=== PATIENT | male | born 2005 | race Caucasian/White ===

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

== ENCOUNTER 2024-01-26 05:59 | Day surgery (SDC) | payer OTHER, SELFPAY ==
[2024-01-26] VITALS (9 sets, daily range): BP systolic 105–146; BP diastolic 49–78; PULSE 48–104; RESP 16–24; TEMP 36.1–36.4; O2SAT 95–100; BMI 26.4
[2024-01-26] MEDS: LACTATED RINGERS 1000ML 1,000 ML 25 ML IV (06:32)
--- NOTE | 2024-01-26 07:10 | P.PNANES_ITS ---
[facility] Disclaimer: The information contained in this section may have been updated after the patient was seen, as this information can be updated by other users. Surgical History History of eye surgery Family History Other Cancer Diabetes Heart attack Hyperlipidemia Hypertension Stroke Substance abuse Social History (Updated 01/26/24 @ 06:19 by Lissette Christensen RN) Smoking Status: Never smoker alcohol intake: never substance use type: denies use current occupational status: student Travel in the last 8 weeks: None household members: family [facility] Anesthesia Checklist Patient Identification Patient Identification: Arm Band, Family and Verbal (Name & ) Structural Data Admitted From: Home Planned Operative Procedure/s: RIGHT Knee Arthroscopic-assisted ACL Repair Consent for Planned Operative Procedure(s) Verified: Yes Verified Documents: Surgical Consent and History and Physical NPO Status Verified Time NPO: 21:00 Chart Verification Results Verified: None (None since 2018) Additional verifications Patient : No Anesthesia Reactions: No Hx Blood Transfusions: No Blood Transfusion Reaction: No Cardiovascular Assessment Heart Sounds: S1 & S2 Pulse Rhythm: Irregular Peripheral Edema: No Airway Assessment Mallampati Score:: Class II C-Spine Mobility Assessed: Yes (FROM) TMJ Mobility Assessed: Yes Dentition: Good Dentition (Nothing loose per pt.) Neurological Assessment Level of Consciousness: Awake, Appropriate and Follows Commands Hx Seizures: No Numbness or tingling in extremities: No Anesthesia Plan Anesthesia Risk discussed: Yes Anesthesia Plan: Verified ASA Class: I Anesthesia Type: General w/block (Adductor canal)
[2024-01-26] MEDS: CEFAZOLIN SODIUM 2 GM in 0.9 % SODIUM CHLORIDE 100 ML IV (07:50)
--- NOTE | 2024-01-26 11:13 | EXP.OP.NOTE ---
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 Right knee arthroscopic assisted anterior cruciate ligament reconstruction with quadriceps autograft 2, right knee arthroscopy partial medial meniscectomy Surgeon:: Andres Fountain DO Respite Coordinator(s):: jose d forbes MAGNETIC RESONANCE TECHNOLOGIST:: Dotty Avalos Anesthesia: GETA and regional Estimated blood loss (mL): 25 Clinical Note:: 18-year-old male who suffered initial knee injury in 2019 while playing sports at which time resulted in an ACL tear and possible meniscus tear he did not have workup done at that time however recently has had some mechanical symptoms catching locking giving out MRI scan showed complex tear of the medial meniscus and chronic ACL tear. He had full good range of motion and clinically was doing quite well but would like to have the knee reconstructed in regards to the ACL and address the meniscal tear. Operative findings:: Chronic full-thickness tear ACL Large complex tear medial meniscus chronic in nature bucket-handle type nonrepairable Operative note:: Patient is identified preoperatively. Right knee marked with yes my initials. Underwent a block with anesthesia. Taken the operating room. Placed upon operating bed. General anesthesia was ministered airway secured. Right lower extremity was then prepped and draped in normal sterile fashion within the knee anand. Once prepped and draped final operative timeout performed to identify proper patient procedure and extremity. Everyone involved the case agreed. No counter indications to beginning. Did receive preoperative antibiotics. Marking pen was used to carson the bony landmarks of the knee and superior pole the patella and planned portal sites. Esmarch was used to exsanguinate extremity medic tourniquet was inflated to 300 mmHg. Standard anterior lateral portal was made and the blunt with trocar was placed in patellofemoral joint exchange with a camera. Within the patellofemoral joint I swept directly into the medial joint line where the anterior medial portal was made with the help of the 18-gauge spinal needle. Within the medial portal swept into the medial joint line there was a large complex tear with a bucket-handle type tear of the medial meniscus. This was a chronic appearing tear and was complex in nature significant effort was made to flip the meniscus back into its proper place in hopes of salvaging this meniscus however given the chronic nature of the tear and the scarring in this area I was unable to flip the meniscus into a reducible situation that would allow it to heal. It is likely that this meniscus tear happened at the initial injury in 2019. Therefore partial medial meniscectomy was performed stable rim to remove the large torn portion of the meniscus. Tensions then brought to the intercondylar notch the ACL was missing and there was some scarring on the tibial side. At that time the camera was removed and attention was brought to the quadriceps. Longitudinal incision was made just above the superior pole of the patella. The fat in this area was removed to get down to tendon. Quadriceps tendon was visualized and the camera was then placed to show a depth of 7 cm and this was marked on the skin with a camera. Dissection was taken down the circumferential area of the quad pro harvester was utilized and marked with a marking pen. Attention was then brought down to the edge it was freed from the patella. A stay stitch was then placed in the distal aspect and placed in the quad pro harvester. Harvester was then used to cut the quad tendon to a distance of 7 cm. The cutting device was then used to harvest the quadriceps tendon. This was placed on the back table where preparation was performed with attachment of the tight rope mechanisms on both the femoral and tibial ends. Graft was placed through the graft sizers sized to a size 9 on the femoral side 8 on the tibia side. As a graft being prepared attention was brought to drilling of the tunnels the anterior medial portal was made with a 18-gauge spinal needle for proper visualization and then over top guide was placed with a guidepin and overdrilled and proper trajectory. Once overdrilled the passing stitch was then placed and tagged. Attention was then brought to the tibial tunnel. The tibial guide was utilized and the flip cutter guidewire was then placed and flipped to a size 8 and the tibial socket was drilled. Then another passing suture was placed. Attention is then brought to the graft where the free ends of the femoral side graft were placed through where the button was brought on the outside of the femur and allowed to flip and then using the white sutures the femoral portion of the graft was walked into the femoral tunnel. Within the femoral tunnel the graft was walked up into snug into the tunnel. Probe was used then to flip the tibial portion of the graft down and the passing suture through the tibia was then placed to pull the tight rope mechanism out through the tibial drill hole ABS button was then attached and placed on the tibia side with the knee in extension. This gave good fixation of the ACL graft was stable after repair. Cameras removed the joint was drained. Skin closed with deep with Vicryl stitch and skin with nylon stitch sterile dressing placed patient taken recovery in stable condition. Condition: stable Disposition: PACU Complications:: None apparent
--- NOTE | 2024-01-26 11:39 | P.PNANES_ITS ---
[facility] Anesthesia Record Part I Anesthesia Record I Intake, IV Amount: 1,500 Hydration: Adequate Estimated blood loss (mL): 50 Urine output (mL): 0 Blood Products used (#): none Blood Pressure: 146/53 SaO2: 95 Pulse Rate: 104 Airway Patency: Patent Respiratory Rate: 24 Temperature: 96.9 F Patient is:: Awake (Talking) and Stable Stable to PACU at:: 11:30
--- NOTE | 2024-01-26 12:02 | SUR.PHASEI ---
1155- detailed report given to hussein garcia in post op. Pt left in stable condition. Rehab notified to fit pt for TROM brace in post op.
--- NOTE | 2024-01-27 12:01 | EXP.ANES.II ---
[facility] Anesthesia Record Part II Anesthesia Record Part II Discharge Time: 11:55 Destination: Surgical Day Care (OP Surgery) PACU nurse assessment reviewed?: Yes Patient Condition:: Good Anesthesia Complications:: None Swallowing reflex intact?: Yes Airway Patency: Patent Cyanosis?: No Blood Pressure: 105/52 SaO2: 98 Respiratory Rate: 24 Pulse Rate: 81 Temperature: 97.2 F Mental Status: Alert & Oriented Pain level:: 0 Nausea and/or vomitting:: None Intake, IV Amount: 1,500 Hydration: Adequate
[2024-01-27 12:02] VITALS: BP 105/52; PULSE 81; RESP 24; TEMP 36.2; O2SAT 98
== END 2024-01-26 12:45 | disposition home or self-care (01) ==
PROVIDERS: PCP Internal Medicine; Visit Provider Orthopaedic Surgery
PROC: (CPT 29870; principal; 2024-01-26 07:30)
DX: S83.231A Complex tear of medial meniscus, current injury, right knee, initial encounter (principal); S83.511A Sprain of anterior cruciate ligament of right knee, initial encounter
CPT/HCPCS: 29888; 29881; 96375; C1713; C9290; J0690; J2405; J7120

== ENCOUNTER 2024-02-21 16:52 | Emergency (ER) | payer OTHER, SELFPAY ==
[2024-02-21 17:00] VITALS: BP 131/64; PULSE 100; RESP 18; TEMP 38.2; O2SAT 96; BMI 26.4
[2024-02-21 17:13] LABS: UTC Strep Screen (Rapid) Negative (Negative)
--- NOTE | 2024-02-21 17:13 | EXP.UTC ---
Discharge Plan Disposition Patient Disposition: Home, Self-Care Condition: Good Prescriptions Prescriptions: New prednisone 20 mg tablet 20 mg PO DAILY 2 Days Qty: 2 0RF amoxicillin 875 mg tablet 875 mg PO Q12H Qty: 20 0RF nrkakecqbcjebrl-cywhnufoo-QS [Bromfed DM] 2-30-10 mg/5 mL Syrup 5 ml PO Q6H PRN (Reason: Cough) Qty: 240 0RF Referrals Follow up/Referrals: Ruben Duran DO [Primary Care Provider] - See instructions Activity Restrictions/Add. Instructions Additional Instructions/Restrictions: Drink plenty of fluids. Take tylenol or ibuprofen for pain or fever. Take the medications as directed. Follow up with your regular doctor. GO TO THE ER FOR ANY WORSENING SYMPTOMS Clinical Impressions Clinical Impression: Pharyngitis Instructions Patient Instructions: DI for Pharyngitis/Tonsillopharyngitis -- Adult, Prednisone, Amoxicillin Discharge ED Provider: Gonzalez Barajas [facility] General Stated complaint: sore throat, fever Mode of Arrival: Ambulatory Source of Information: Patient Limitations: No Limitations Time Seen by Provider: 02/21/24 17:13 Description of Symptoms (Recalled from Triage Doc. by RN): Pt's symptoms are sore throat, and body aches. HEENT Symptoms (Recalled from RN notes): Yes Resp Symptoms (Recalled from RN notes): No Skin Symptoms (Recalled from RN notes): No MS Symptoms (Recalled from RN notes): No Functional Status (Recalled from RN notes): n/a Related Data Previous Rx's Medication Instructions Recorded amoxicillin 875 mg tablet 875 mg PO Q12H #20 tabs 02/21/24 fxqaqyncsnfxzvq-bzotalgytadftmu-GB 5 ml PO Q6H PRN Cough #240 mL 02/21/24 2 mg-30 mg-10 mg/5 mL oral syrup (Bromfed DM) prednisone 20 mg tablet 20 mg PO DAILY 2 days #2 tabs 02/21/24 Allergies Allergy/AdvReac Type Severity Reaction Status Date / Time No Known Allergies Allergy Verified 02/21/24 17:06 Worker's Comp Is this a Worker's Comp case?: No [facility] Disclaimer: The information contained in this section may have been updated after the patient was seen, as this information can be updated by other users. Surgical History History of eye surgery Family History Other Cancer Diabetes Heart attack Hyperlipidemia Hypertension Stroke Substance abuse Social History Smoking Status: Never smoker alcohol intake: never substance use type: denies use current occupational status: student Travel in the last 8 weeks: None household members: family ROS Obtained: Yes All systems reviewed & no additional complaints except as documented Constitutional Constitutional: Reports chills and Reports fever(s) Eyes Eyes: Denies eye discharge ENT Ears, Nose, Mouth, and Throat: Reports as per HPI Cardiovascular Cardiovascular: Denies chest pain Respiratory Respiratory: Denies chest congestion and Reports cough Gastrointestinal Gastrointestingal: Reports nausea; Denies abdominal pain, constipation, cramping, diarrhea or vomiting Musculoskeletal Musculoskeletal: Denies arthralgias Integumentary/Breasts Skin/Breast: Denies rash Neurologic Neurologic: Denies paresthesias Physical Exam General General appearance: alert and in no apparent distress Head Head exam: atraumatic, normocephalic and normal inspection Eye Eye exam: Present normal appearance, PERRL and EOMI ENT ENT exam: Present mucous membranes moist and normal external ear exam Expanded ENT Exam TM/Canal exam: Bilateral TM: erythema and bulging Nose exam: Absent sinus tenderness Mouth exam: Present normal external inspection; Absent drooling Teeth exam: Present normal inspection Throat exam: Present tonsillar erythema, tonsillomegaly and tonsillar exudate Neck Neck exam: Present normal inspection, full ROM and trachea midline; Absent tenderness, meningismus or lymphadenopathy Chest Chest inspection: Present normal inspection and symmetric chest wall rise; Absent tenderness Respiratory Respiratory exam: Present normal lung sounds bilaterally; Absent respiratory distress, wheezes, stridor or accessory muscle use Cardiovascular Cardiovascular exam: Present regular rate and normal rhythm; Absent systolic murmur or diastolic murmur Abdominal Exam Abdominal exam: Present soft and normal bowel sounds; Absent distention, tenderness, guarding, rebound or rigidity Extremities Exam Extremities exam: Present normal inspection and normal capillary refill; Absent calf tenderness Back Exam Back exam: Present normal inspection and full ROM; Absent tenderness, CVA tenderness (R) or CVA tenderness (L) Neurological Exam Neurological exam: Present alert, oriented X3 and CN II-XII intact Psychiatric Psychiatric exam: Present normal affect and normal mood Skin Skin exam: Present warm, dry, intact and normal color Medical Decision Making Medical Records Medical records reviewed: No I reviewed the patient's medical records. Honorio Inquiry Pt receiving controlled substance: No Vital Signs: 02/21/24 17:00 Temperature 100.8 F H Temperature Source Oral Pulse Rate [Right Radial] 100 H Respiratory Rate 18 Blood Pressure [Right Arm] 131/64 Blood Pressure Mean [Right Arm] 86 Blood Pressure Source [Right Arm] Automatic Cuff Blood Pressure Position [Right Arm] Sitting 02 Sat by Pulse Oximetry 96 Oxygen Delivery Method Room Air Lab Data Lab results reviewed: Yes I reviewed the patient's lab results.
[2024-02-21 17:32] VITALS: BP 131/64; PULSE 100; RESP 18; TEMP 38.2; O2SAT 96
== END 2024-02-21 17:32 | disposition home or self-care (01) ==
PROVIDERS: Emergency Provider Nurse Practitioner Family; PCP Internal Medicine
DX: J02.9 Acute pharyngitis, unspecified (principal); R50.9 Fever, unspecified
CPT/HCPCS: 87880; 99212; 99214; G0463

== ENCOUNTER 2024-02-29 10:40 | Emergency (ER) | payer OTHER, SELFPAY ==
[2024-02-29 10:50] VITALS: BP 116/66; PULSE 92; RESP 18; TEMP 36.8; O2SAT 97; BMI 24.5
--- NOTE | 2024-02-29 11:10 | EXP.UTC ---
Discharge Plan Disposition Patient Disposition: Home, Self-Care Condition: Good Prescriptions Prescriptions: New methylprednisolone 4 mg Tablets,Dose Pack 4 mg PO DIRECTED 6 Days Qty: 21 0RF Rx Instructions: Take 1 pack as directed for 6 days sewvfzztfgwjdkf-ukarxtncc-FD [Bromfed DM] 2-30-10 mg/5 mL Syrup 5 ml PO Q6H PRN (Reason: Cough) Qty: 240 0RF cefdinir 300 mg capsule 300 mg PO BID Qty: 20 0RF No Action amoxicillin 875 mg tablet 875 mg PO Q12H Qty: 20 0RF luetonkfejpdkmo-orzsrgazd-DR [Bromfed DM] 2-30-10 mg/5 mL Syrup 5 ml PO Q6H PRN (Reason: Cough) Qty: 240 0RF Referrals Follow up/Referrals: Xenia Gil APRN [Primary Care Provider] - See instructions Activity Restrictions/Add. Instructions Additional Instructions/Restrictions: Drink plenty of fluids. Take tylenol or ibuprofen for pain or fever. Take the medications as directed. Follow up with your regular doctor. GO TO THE ER FOR ANY WORSENING SYMPTOMS Clinical Impressions Clinical Impression: Acute bronchitis Instructions Patient Instructions: Acute Bronchitis, DI for Acute Bronchitis Discharge ED Provider: Gonzalez Barajas [facility] General Stated complaint: congestion cough right ear pain Mode of Arrival: Ambulatory Source of Information: Patient Limitations: No Limitations Time Seen by Provider: 02/29/24 11:09 Description of Symptoms (Recalled from Triage Doc. by RN): PATIENT C/O COUGH WITH BLOOD-TINGED SPUTUM, SORE THROAT AND RIGHT EAR PAIN X 9 DAYS HEENT Symptoms (Recalled from RN notes): Yes Resp Symptoms (Recalled from RN notes): Yes Skin Symptoms (Recalled from RN notes): No MS Symptoms (Recalled from RN notes): No Functional Status (Recalled from RN notes): WNL Related Data Previous Rx's Medication Instructions Recorded amoxicillin 875 mg tablet 875 mg PO Q12H #20 tabs 02/21/24 rpfsixveozwfcxy-ggeflfebhyknxst-TI 5 ml PO Q6H PRN Cough #240 mL 02/21/24 2 mg-30 mg-10 mg/5 mL oral syrup (Bromfed DM) ytfxrydpvzyjckd-xmtrxlebqixndsv-XK 5 ml PO Q6H PRN Cough #240 mL 02/29/24 2 mg-30 mg-10 mg/5 mL oral syrup (Bromfed DM) cefdinir 300 mg capsule 300 mg PO BID #20 caps 02/29/24 methylprednisolone 4 mg tablets in 4 mg PO DIRECTED 6 days #21 tabs 02/29/24 a dose pack Allergies Allergy/AdvReac Type Severity Reaction Status Date / Time No Known Allergies Allergy Verified 02/21/24 17:06 Worker's Comp Is this a Worker's Comp case?: No [facility] Disclaimer: The information contained in this section may have been updated after the patient was seen, as this information can be updated by other users. Surgical History History of eye surgery Family History Other Cancer Diabetes Heart attack Hyperlipidemia Hypertension Stroke Substance abuse Social History Smoking Status: Never smoker alcohol intake: never substance use type: denies use current occupational status: student Travel in the last 8 weeks: None household members: family ROS Obtained: Yes All systems reviewed & no additional complaints except as documented Constitutional Constitutional: Reports poor appetite Eyes Eyes: Reports system reviewed and no additional complaints, except as documented ENT Ears, Nose, Mouth, and Throat: Reports as per HPI Cardiovascular Cardiovascular: Reports system reviewed and no additional complaints, except as documented and Denies chest pain Respiratory Respiratory: Denies shortness of breath, Reports chest congestion, Reports cough, Denies stridor and Denies wheezing Gastrointestinal Gastrointestingal: Reports system reviewed and no additional complaints, except as documented; Denies abdominal pain, diarrhea or vomiting Musculoskeletal Musculoskeletal: Reports system reviewed and no additional complaints, except as documented and Denies arthralgias Integumentary/Breasts Skin/Breast: Reports system reviewed and no additional complaints, except as documented and Denies rash Neurologic Neurologic: Denies paresthesias Allergic/Immunologic Allergic/Immunologic: Denies wheezing Physical Exam General General appearance: alert and in no apparent distress Eye Eye exam: Present normal appearance, PERRL and EOMI ENT ENT exam: Present mucous membranes moist and normal external ear exam Expanded ENT Exam External ear exam: Present normal external inspection TM/Canal exam: Bilateral TM: erythema and bulging Nose exam: Absent sinus tenderness Nasal speculum exam: Bilateral: normal Mouth exam: Present normal external inspection; Absent drooling Teeth exam: Present normal inspection Throat exam: Present tonsillar erythema and tonsillomegaly Neck Neck exam: Present normal inspection, full ROM and trachea midline; Absent tenderness, lymphadenopathy or thyromegaly Chest Chest inspection: Present normal inspection and symmetric chest wall rise; Absent tenderness or rash Respiratory Respiratory exam: Present normal lung sounds bilaterally; Absent respiratory distress, wheezes, stridor or accessory muscle use Cardiovascular Cardiovascular exam: Present regular rate, normal rhythm and normal heart sounds Abdominal Exam Abdominal exam: Present soft; Absent distention, tenderness, guarding, rebound or rigidity Extremities Exam Extremities exam: Present normal inspection, full ROM and normal capillary refill; Absent tenderness or calf tenderness Back Exam Back exam: Present normal inspection and full ROM; Absent tenderness Neurological Exam Neurological exam: Present alert and oriented X3 Psychiatric Psychiatric exam: Present normal affect and normal mood Skin Skin exam: Present warm, dry, intact and normal color Lymphatic Lymphatic Findings: no adenopathy Medical Decision Making Medical Records Medical records reviewed: No I reviewed the patient's medical records. Honorio Inquiry Pt receiving controlled substance: No Vital Signs: 02/29/24 10:50 Temperature 98.2 F Temperature Source Oral Pulse Rate [Left Brachial] 92 H Respiratory Rate 18 Blood Pressure [Left Arm] 116/66 Blood Pressure Mean [Left Arm] 82 Blood Pressure Source [Left Arm] Automatic Cuff Blood Pressure Position [Left Arm] Sitting 02 Sat by Pulse Oximetry 97 Oxygen Delivery Method Room Air
[2024-02-29 11:34] VITALS: BP 116/66; PULSE 92; RESP 18; TEMP 36.8; O2SAT 97
== END 2024-02-29 11:36 | disposition home or self-care (01) ==
PROVIDERS: Emergency Provider Nurse Practitioner Family; PCP Family Medicine
DX: J20.9 Acute bronchitis, unspecified (principal); R07.0 Pain in throat; H92.01 Otalgia, right ear
CPT/HCPCS: 99212; 99214; G0463

== ENCOUNTER 2024-05-13 17:00 | Outpatient (RCR) | payer OTHER, SELFPAY ==
--- NOTE | 2024-02-11 18:01 | HMH.PTOPEV ---
PT Outpatient Evaluation Rehab PT Outpatient Evaluation Start: 02/11/24 17:30 Freq: Status: Active Protocol: Document 02/11/24 17:30 MELVIN (Rec: 02/11/24 18:01 MELVIN [id number]) E-signed By Jermaine Mcrae, PT Outpatient Therapy Subjective History Subjective History Patient is a 18 year old male presenting to outpatient PT with reports of R post- surgical knee pain S/P R ACL reconstruction with quadriceps autograft and medial meniscectomy. Sx date 01/26/24 ( 16 d S/P). Patient had a hyperextension injury approx 2 years ago while playing basketball that has progressively gotten worse. No other comorbidities to report. New diagnosis of cancer in past 12 No months? Chief Complaint Pain,Stiff,Swelling,Weakness Symptom Type Ache,Sharp Symptoms Relieved By Rest/Positioning,Ice, Prescription Meds Prior Functional Limitations Standing,Recreation Activity, Walking Current Functional Limitations Housework,Sleeping,Standing, Squatting,Recreation Activity, Walking,Stairs,Balance Symptom Description Intermittent Level of pain today (0-10) 1 Pain scale - at its best (0-10) 0 Pain scale - at its worst (0-10) 6 Hip/Knee Eval Gait Observation General Gait Pattern Observation Antalgic Gait,Decrease Weight Bear (R) Assistive Device Assistive Devices Axillary Crutches Palpation Tenderness right Knee Palpation Finding Tenderness Knee Palpation Overall Comment quad tendon/MJL 3/4 MMT Hip Strength Reason Not Measured Orthopedic Precautions Knee Strength Reason Not Measured Orthopedic Precautions ROM Hip ROM Reason Not Measured Within Functional Limits Knee Extension Active Range of Motion ( 0- degrees) Knee Flexion Active Range of Motion ( 80 degrees) Lower Extremity Functional Index Activities Today, do you or would you have any difficulty at all with: a.Any of your usual work, housework or Quite a bit of difficulty school activities b. Your usual hobbies, recreational or Extreme difficulty or unable sporting activities to perform activity c. Getting into or out of the bath Moderate difficulty d. Walking between rooms A little bit of difficulty e. Putting on your shoes or socks Moderate difficulty f. Squatting Extreme difficulty or unable to perform activity g. Lifting an object, like a bag of Moderate difficulty groceries from the floor h. Performing light activities around A little bit of difficulty your home i. Performing heavy activities around Quite a bit of difficulty your home j. Getting into or out of a car Quite a bit of difficulty k. Walking 2 blocks Moderate difficulty l. Walking a mile Extreme difficulty or unable to perform activity m. Going up or down 10 stairs (about 1 Extreme difficulty or unable flight of stairs) to perform activity n. Standing for 1 hour Moderate difficulty o. Sitting for 1 hour Quite a bit of difficulty p. Running on even ground Moderate difficulty q. Running on uneven ground Extreme difficulty or unable to perform activity r. Making sharp turns while running fast Extreme difficulty or unable to perform activity s. Hopping Extreme difficulty or unable to perform activity t. Rolling over in bed Moderate difficulty LEFI Score Lower Extremity Functional Index Score 24 Outpatient Therapy Assessment Impairments Problems/Impairmments Palpation Tenderness,Impaired Range of Motion,Impaired Strength,Impaired Walking, Impaired Standing,Impaired Shower/Bathing,Impaired Household Care,Impaired Stair Climbing,Impaired Incline Stepping,Impaired Stepping on Uneven Surface,Impaired Bending,Impaired Recreational Activities,Impaired Running, Impaired Jumping,Impaired Balance,Increased Edema,Wound Care Needs,Subjective C/O Pain Prognosis Rehab Potential Good Clinical Impression Consistent with Diagnosis Yes Short Term Goals Number of Weeks 2 Decrease Subjective C/O Pain Yes: 4/10 at worst Patient to be Ind w/ HEP Yes Group Home Goals Number of Weeks 6-8 Decreased Palpation Tenderness Yes: 1/4 Increase Range of Motion Yes: 0-130 Increase Strength RLE 5/5 Return to Recreational Activities Yes Decrease Subjective C/O Pain Yes: 2/10 at worst Outpatient Therapy Plan of Care Treatment Plan May Include Therapeutic Exercise Including Home Yes Exercise Program Manual Therapy Techniques Yes Neuromuscular Re-education Yes Therapeutic Activities to Return to Yes Previous Functional/Work Level Gait Training Yes ADL/Self Care Education Yes Dry Needling Yes Thermal Modalities Yes Electrical Stimulation Yes Ultrasound/Phonophoresis Yes Iontophoresis Yes Orthotics/Bracing/Splinting Yes Vasopneumatic Compression Pump Yes Massage Yes Manual Lymphatic Drainage Yes Eval/Re-Eval Yes Frequency Times per week 2-3 Duration Number of Weeks 4-6 Addendums This patient is a candidate for social No or vocational rehab? Patient/Guardian verbally acknowledges Yes understanding of treatment program and consents to further treatment? Patient/Guardian verbally acknowledges Yes understanding of diagnosis, prognosis and goals for treatment? Eval Complexity PT Charges 99453 - Moderate Complexity Shoulder/Elbow Eval Shoulder Objective Measurements Elbow Objective Measurements PHYSICIAN CERTIFICATION: I certify the specified therapy services for Gonzalez Carlos Bills are required, authorized, and reviewed every 30 days.
--- NOTE | 2024-03-08 17:43 | [facility].RHREAS ---
Rehab Reassessment Rehab OP Re-assessment Start: 02/11/24 17:30 Freq: Status: Active Protocol: Document 03/08/24 17:34 PHORMARCE (Rec: 03/08/24 17:43 PHORNE [id number]) E-signed By Murphy Nash, PT Lower Extremity Functional Index Activities Today, do you or would you have any difficulty at all with: a.Any of your usual work, housework or A little bit of difficulty school activities b. Your usual hobbies, recreational or Quite a bit of difficulty sporting activities c. Getting into or out of the bath No difficulty d. Walking between rooms No difficulty e. Putting on your shoes or socks Moderate difficulty f. Squatting Quite a bit of difficulty g. Lifting an object, like a bag of A little bit of difficulty groceries from the floor h. Performing light activities around No difficulty your home i. Performing heavy activities around Moderate difficulty your home j. Getting into or out of a car Moderate difficulty k. Walking 2 blocks Moderate difficulty l. Walking a mile Quite a bit of difficulty m. Going up or down 10 stairs (about 1 A little bit of difficulty flight of stairs) n. Standing for 1 hour A little bit of difficulty o. Sitting for 1 hour No difficulty p. Running on even ground Extreme difficulty or unable to perform activity q. Running on uneven ground Extreme difficulty or unable to perform activity r. Making sharp turns while running fast Extreme difficulty or unable to perform activity s. Hopping Extreme difficulty or unable to perform activity t. Rolling over in bed No difficulty LEFI Score Lower Extremity Functional Index Score 43 Rehab Re-assessment Subjective Subjective Pt presents ~ 6 wks S/P R ACL reconstruction and PMM. He reports no c/o pain with any activity at this time. He has been wearing his T-scope brace as directed. He reports no current c/o discomfort in the R LE. Objective Objective Notes AROM R knee: 0-125 deg ( without brace) MMT R LE: KNEE FLEX 4/5, KNEE EXT 4/5, SLR 4+/5, HIP ABD 5/5 , HIP EXT 4+/5 TTP: 0/4 throughout the R knee Pain: currently 0/10 in R LE LEFS: 43 this date vs 24 on IE . Assessment Progress Assessment Progressing as Expected Assessment Notes Pt continues to improve all mobility, strength, and pain throughout the R LE. He is following his post-operative protocols and wearing his post -op brace as directed. He continues to await further healing to be cleared by MD to advance his activity level. He continues to need skilled therapy to fully increase strength and ROM of his R LE to return to prior functional levels. Patient goals met ST LT Goals Not Met LT/5 Plan Plan Continue per initial POC. Follow MD directed rehab protocols post surgery. Frequency of Therapy 2-3 x/wk Duration of therapy 4 wks Time and Billing Re-Eval Time 12 Re-Eval Billing Units 1 PHYSICIAN CERTIFICATION: I certify the specified therapy services for Gonzalez Gilmore are required, authorized, and reviewed every 30 days.
== END 2024-05-13 17:05 | disposition home or self-care (01) ==
LOC: PT 17:00
PROVIDERS: Visit Provider Orthopaedic Surgery
DX: M25.561 Pain in right knee (principal); S83.231A Complex tear of medial meniscus, current injury, right knee, initial encounter; S83.511A Sprain of anterior cruciate ligament of right knee, initial encounter; Z98.890 Other specified postprocedural states
CPT/HCPCS: 97014; 97016; 97110; 97163; 97164; 97530; G0283